=== PATIENT | male | born 1950 | race Caucasian/White ===

== ENCOUNTER 2021-06-16 01:13 | Inpatient (IN) | payer MEDICARE, MEDICAID ==
[2021-06-16] VITALS (9 sets, daily range): BP systolic 99–119; BP diastolic 62–76
[~2021-06-16] VITALS: Ht 167.6 cm; Wt 75.0 kg
[2021-06-16] MEDS ORDERED: THIA100T66 PO (01:36)
[2021-06-16] MEDS ORDERED: FOLI1TAB27 PO (01:36)
[2021-06-16] MEDS ORDERED: normal saline 1000ml 1,000 ML IV ONE (01:45)
[2021-06-16] MEDS ORDERED: adenosine 3mg/ml 2ml vial IV ONE ×2 (01:45→01:55)
[2021-06-16 02:00] LABS: BASOPHILS # (AUTO) 0.1 X10'3 (0-0.2); EOSINOPHILS # (AUTO) 0.2 X10'3 (0-0.9); EOSINOPHILS % (AUTO) 3.1 % (0-6); HEMATOCRIT 37.6 % (42.0-52.0); HEMOGLOBIN 12.3 g/dl (14.0-17.9); LYMPHOCYTES # (AUTO) 2.3 X10'3 (1.1-4.8); LYMPHOCYTES % (AUTO) 30.2 % (21-51); MEAN CORPUSCULAR HEMOGLOBIN 27.7 PG (27.0-31.0); MEAN CORPUSCULAR HGB CONC 32.7 g/dL (33.0-36.5); MEAN CORPUSCULAR VOLUME 84.9 FL (78-98); MEAN PLATELET VOLUME 8.3 FL (7.4-10.4); MONOCYTES # (AUTO) 0.7 X10'3 (0-0.9); MONOCYTES % (AUTO) 9.4 % (2-12); NEUTROPHILS # (AUTO) 4.2 X10'3 (1.8-7.7); NEUTROPHILS % (AUTO) 56.3 % (42-75); PLATELET COUNT 186 X10'3 (140-440); RED BLOOD COUNT 4.43 X10'6 (4.70-6.10); RED CELL DISTRIBUTION WIDTH 15.8 % (11.5-14.5); WHITE BLOOD COUNT 7.5 X10'3 (4.5-11.0)
[2021-06-16] MEDS ORDERED: diltiazem 5mg/ml 5ml inj. IV ONE (02:00)
--- NOTE | 2021-06-16 02:07 | NUR ---
Pt roomed directly to ER05. [place] alert, no impending distress. Tried two rounds of adenocard with ERP present and 10mg cardizem PIV s desired results. Adenocard temporarily slowed heart rate down however slower rate not sustained for more than about 2 minutes. Pt josey. well remained pinkl.
[2021-06-16] MEDS: metoprolol tartrate 1mg/ml inj IV SCH ×3 (02:10→02:40)
[2021-06-16 02:13] LABS: ALANINE AMINOTRANSFERASE 14 U/L (12-78); ALKALINE PHOSPHATASE 53 IU/L (46-116); ANION GAP 5 (8-16); ASPARTATE AMINO TRANSFERASE 13 U/L (10-37); BILIRUBIN,TOTAL 0.3 MG/DL (0.1-1.0); BLOOD UREA NITROGEN 21 MG/DL (7-18); BUN/CREATININE RATIO 18.1 (5.4-32.0); CALCIUM 8.2 MG/DL (8.5-10.1); CHLORIDE 112 MMOL/L (99-107); CREATININE 1.16 MG/DL (0.60-1.10); GLUCOSE 118 MG/DL (70-104); POTASSIUM 4.2 MMOL/L (3.5-5.1); SODIUM 147 MMOL/L (135-145); TOTAL CARBON DIOXIDE 30.1 MMOL/L (24-32); TOTAL PROTEIN 6.1 G/DL (6.4-8.2); eGFR 62 ML/MIN
[2021-06-16] MEDS ORDERED: amiodarone 150mg/dext, iso-os 100 ML IV ONE (02:25)
[2021-06-16] MEDS: amiodarone/D5 360MG/200ML BAG 200 ML IV SCH ×4 (02:51→19:30)
[2021-06-16] MEDS ORDERED: magnesium Cl slow-release 64mg tablet PO PRN (04:05)
[2021-06-16] MEDS ORDERED: magnesium 4gm in 100ml NS 100 ML IV PRN (04:05)
[2021-06-16] MEDS ORDERED: magnesium hydroxide 30ml (MOM) UD suspension PO PRN (04:05)
[2021-06-16] MEDS ORDERED: HYDROcodone/acetaminophen 10/325mg tab PO PRN (04:05)
[2021-06-16] MEDS ORDERED: mag hydrox/Alum hydrox/simeth 30ml oral suspension PO PRN (04:05)
[2021-06-16] MEDS ORDERED: acetaminophen 325mg tablet PO PRN ×2 (04:05)
[2021-06-16] MEDS ORDERED: morphine 2 MG/ML inj. syringe IV PRN ×2 (04:05)
[2021-06-16] MEDS ORDERED: HYDROcodone/acetaminophen 5mg/325mg tablet PO PRN (04:05)
[2021-06-16] MEDS ORDERED: ondansetron/PF 4mg/2ml inj IV PRN (04:05)
[2021-06-16] MEDS ORDERED: magnesium 2GM in 50ml NS 50 ML IV PRN (04:05)
[2021-06-16] MEDS ORDERED: potassium CL 10mEq/100ml bag 100 ML IV PRN (04:05)
[2021-06-16] MEDS ORDERED: POTASSIUM BICARB 20meq eff tab 20 MEQ TABLET.EFF PO PRN ×2 (04:05)
[2021-06-16 04:20] LABS: MAGNESIUM 1.7 MG/DL (1.5-2.4)
[2021-06-16 04:26] LABS: HEMOGLOBIN A1C 6.6 % (4.5-6.2)
[2021-06-16] MEDS ORDERED: metoprolol tartrate 1mg/ml inj IV SCH (04:40)
--- NOTE | 2021-06-16 04:54 | NUR ---
Pt pink, alert, no acute/resp distress. PIV site c/d/i s complication or adverse reaction. Bed in lowest position, wheels locked, rail 2/2 up. Call [facility] in reach.
--- NOTE | 2021-06-16 05:23 | NUR ---
Pt pink, alert, no acute/resp distress. PIV site c/d/i s complication or adverse reaction. Bed in lowest position, wheels locked, rail 2/2 up. Call [facility] in reach. Pt using urinal to void.
--- NOTE | 2021-06-16 06:11 | NUR ---
Handoff report to dayshift RN Pt in floor bed in room ed07. Pt bed in lowest position, wheels locked, rails up, call [facility] in reach. PIV site c/d/i s complication or adverse reaction.
[2021-06-16] MEDS: docusate sod 100mg capsule PO SCH ×2 (08:00→19:31)
[2021-06-16] MEDS: K and/or MAG REPLACEMENT MC SCH ×2 (08:00→20:00)
[2021-06-16] MEDS: apixaban 5mg tablet PO SCH ×2 (08:03→19:30)
[2021-06-16] MEDS: folic acid 1mg tablet PO SCH (08:03)
[2021-06-16] MEDS: thiamine 100mg tablet PO SCH (08:03)
[2021-06-16] MEDS: diltiazem 30mg tablet PO SCH ×3 (09:19→19:30)
[2021-06-16] MEDS: furosemide 20 MG/2 ML vial IV SCH ×2 (14:22→19:28)
[2021-06-17] VITALS (7 sets, daily range): BP systolic 101–122; BP diastolic 44–60
[2021-06-17] MEDS ORDERED: digoxin 250mcg/ml 2ml ampule IV SCH (00:20)
--- NOTE | 2021-06-17 00:30 | NUR ---
Pt HR sustaining in a. flutter and between 130-140s. Call placed to [facility] hospitalist Dr. Mckenzie. Order to give Digoxin. See MAR.
[2021-06-17] MEDS: diltiazem 30mg tablet PO SCH ×2 (02:02→07:43)
[2021-06-17 06:11] LABS: BASOPHILS # (AUTO) 0.1 X10'3 (0-0.2); BASOPHILS % (AUTO) 0.7 % (0-1); EOSINOPHILS # (AUTO) 0.2 X10'3 (0-0.9); EOSINOPHILS % (AUTO) 1.7 % (0-6); HEMATOCRIT 37.3 % (42.0-52.0); HEMOGLOBIN 12.4 g/dl (14.0-17.9); LYMPHOCYTES # (AUTO) 1.7 X10'3 (1.1-4.8); LYMPHOCYTES % (AUTO) 17.3 % (21-51); MEAN CORPUSCULAR HEMOGLOBIN 27.8 PG (27.0-31.0); MEAN CORPUSCULAR HGB CONC 33.2 g/dL (33.0-36.5); MEAN CORPUSCULAR VOLUME 83.7 FL (78-98); MEAN PLATELET VOLUME 8.5 FL (7.4-10.4); MONOCYTES # (AUTO) 0.7 X10'3 (0-0.9); MONOCYTES % (AUTO) 7.2 % (2-12); NEUTROPHILS % (AUTO) 73.1 % (42-75); PLATELET COUNT 175 X10'3 (140-440); RED BLOOD COUNT 4.46 X10'6 (4.70-6.10); RED CELL DISTRIBUTION WIDTH 15.9 % (11.5-14.5); WHITE BLOOD COUNT 9.6 X10'3 (4.5-11.0)
[2021-06-17 06:31] LABS: ALANINE AMINOTRANSFERASE 49 U/L (12-78); ALBUMIN/GLOBULIN RATIO 0.9 (1.1-1.5); ALKALINE PHOSPHATASE 65 IU/L (46-116); ANION GAP 6 (8-16); ASPARTATE AMINO TRANSFERASE 25 U/L (10-37); BILIRUBIN,TOTAL 0.4 MG/DL (0.1-1.0); BLOOD UREA NITROGEN 21 MG/DL (7-18); BUN/CREATININE RATIO 17.4 (5.4-32.0); CALCIUM 8.2 MG/DL (8.5-10.1); CHLORIDE 109 MMOL/L (99-107); CHOL/HDL RATIO 3.1 (0.00-4.99); CHOLESTEROL 147 MG/DL (0-200); CREATININE 1.21 MG/DL (0.60-1.10); GLUCOSE 120 MG/DL (70-104); HDL CHOLESTEROL 47 MG/DL (35-60); LDL CHOLESTEROL 87 MG/DL (50-100); POTASSIUM 3.9 MMOL/L (3.5-5.1); SODIUM 144 MMOL/L (135-145); TOTAL CARBON DIOXIDE 28.7 MMOL/L (24-32); TOTAL PROTEIN 6.2 G/DL (6.4-8.2); TRIGLYCERIDES 64 MG/DL (20-135); eGFR 59 ML/MIN
[2021-06-17] MEDS: furosemide 20 MG/2 ML vial IV SCH ×2 (07:43→19:24)
[2021-06-17] MEDS: folic acid 1mg tablet PO SCH (07:43)
[2021-06-17] MEDS: apixaban 5mg tablet PO SCH ×2 (07:43→19:24)
[2021-06-17] MEDS: thiamine 100mg tablet PO SCH (07:43)
[2021-06-17] MEDS: docusate sod 100mg capsule PO SCH ×2 (07:43→19:24)
[2021-06-17] MEDS: amiodarone 200mg tablet PO SCH (07:43)
[2021-06-17] MEDS: K and/or MAG REPLACEMENT MC SCH ×2 (07:50→18:48)
[2021-06-17] MEDS ORDERED: ondansetron 4mg rapidly disintigrating tab PO PRN (13:15)
--- NOTE | 2021-06-17 18:40 | NUR ---
Patient in room U 3013. I have received report from FELISHA BECK and had the opportunity to ask questions and assume patient care. Addendum: 06/17/21 at 1841 by Mona Watts RN Amended: Links added.
[2021-06-17] MEDS: metoprolol tartrate 25mg tablet PO SCH (19:26)
[2021-06-18 02:00] VITALS: BP 106/65
--- NOTE | 2021-06-18 06:49 | NUR ---
Problems reprioritized. Patient report given, questions answered & plan of care reviewed with FELISHA BOSS. Addendum: 06/18/21 at 0650 by Mona Watts RN Amended: Links added.
--- NOTE | 2021-06-18 06:50 | NUR ---
Patient in room PCU 3013. I have received report from Mona BAEZA and had the opportunity to ask questions and assume patient care.
[2021-06-18 07:28] LABS: BASOPHILS # (AUTO) 0.1 X10'3 (0-0.2); BASOPHILS % (AUTO) 0.8 % (0-1); EOSINOPHILS # (AUTO) 0.2 X10'3 (0-0.9); EOSINOPHILS % (AUTO) 2.3 % (0-6); HEMATOCRIT 38.7 % (42.0-52.0); HEMOGLOBIN 12.9 g/dl (14.0-17.9); LYMPHOCYTES # (AUTO) 1.8 X10'3 (1.1-4.8); LYMPHOCYTES % (AUTO) 21.3 % (21-51); MEAN CORPUSCULAR HEMOGLOBIN 27.8 PG (27.0-31.0); MEAN CORPUSCULAR HGB CONC 33.2 g/dL (33.0-36.5); MEAN CORPUSCULAR VOLUME 83.7 FL (78-98); MEAN PLATELET VOLUME 8.9 FL (7.4-10.4); MONOCYTES # (AUTO) 0.7 X10'3 (0-0.9); MONOCYTES % (AUTO) 7.9 % (2-12); NEUTROPHILS # (AUTO) 5.8 X10'3 (1.8-7.7); NEUTROPHILS % (AUTO) 67.7 % (42-75); PLATELET COUNT 168 X10'3 (140-440); RED BLOOD COUNT 4.63 X10'6 (4.70-6.10); RED CELL DISTRIBUTION WIDTH 15.7 % (11.5-14.5); WHITE BLOOD COUNT 8.6 X10'3 (4.5-11.0)
[2021-06-18 07:53] LABS: ALANINE AMINOTRANSFERASE 38 U/L (12-78); ALBUMIN 3.1 G/DL (3.4-5.0); ALBUMIN/GLOBULIN RATIO 0.9 (1.1-1.5); ALKALINE PHOSPHATASE 64 IU/L (46-116); ANION GAP 7 (8-16); ASPARTATE AMINO TRANSFERASE 19 U/L (10-37); BILIRUBIN,TOTAL 0.8 MG/DL (0.1-1.0); BLOOD UREA NITROGEN 23 MG/DL (7-18); BUN/CREATININE RATIO 21.1 (5.4-32.0); CALCIUM 8.5 MG/DL (8.5-10.1); CHLORIDE 107 MMOL/L (99-107); CREATININE 1.09 MG/DL (0.60-1.10); GLUCOSE 110 MG/DL (70-104); POTASSIUM 3.8 MMOL/L (3.5-5.1); SODIUM 143 MMOL/L (135-145); TOTAL CARBON DIOXIDE 29.1 MMOL/L (24-32); TOTAL PROTEIN 6.4 G/DL (6.4-8.2); eGFR 67 ML/MIN
[2021-06-18] MEDS: K and/or MAG REPLACEMENT MC SCH (08:00)
[2021-06-18] MEDS: amiodarone 200mg tablet PO SCH (08:10)
[2021-06-18] MEDS: apixaban 5mg tablet PO SCH (08:10)
[2021-06-18] MEDS: docusate sod 100mg capsule PO SCH (08:10)
[2021-06-18] MEDS: folic acid 1mg tablet PO SCH (08:10)
[2021-06-18] MEDS: thiamine 100mg tablet PO SCH (08:10)
[2021-06-18 08:11] VITALS: BP_SYST 102
[2021-06-18] MEDS: furosemide 20 MG/2 ML vial IV SCH (08:11)
[2021-06-18] MEDS: metoprolol tartrate 25mg tablet PO SCH (08:11)
[2021-06-18] MEDS ORDERED: APIX5TAB3 PO (11:27)
[2021-06-18] MEDS ORDERED: LOP25T PO (11:27)
[2021-06-18] MEDS ORDERED: FURO20TA4 PO (11:27)
[2021-06-18] MEDS ORDERED: AMIO200T67 PO (11:27)
--- NOTE | 2021-06-18 12:51 | NUR ---
Pt discharged. IV and tele box removed, with tele box returned to tele monitored. Reviewed discharge paperwork and patient was able to ask questions and review information. Called [facility] pharmacy to verify that they have the medications and are able to be picked up. Pt packed up belongings and verbalized that he has all of his stuff. Pt was escorted out via wheelchair to taxi to be driven to [place].
== END 2021-06-18 12:56 | disposition home or self-care (01) | DRG 308 ==
LOC: ER 01:14 → ED HOLD 04:07 → PCU 3S 07:47
PROVIDERS: ADMIT Internal Medicine; ATTEND Internal Medicine
DX: I48.91 Unspecified atrial fibrillation (principal); I50.21 Acute systolic (congestive) heart failure; I70.92 Chronic total occlusion of artery of the extremities; I48.92 Unspecified atrial flutter; D17.9 Benign lipomatous neoplasm, unspecified; I70.201 Unspecified atherosclerosis of native arteries of extremities, right leg; I71.2 Thoracic aortic aneurysm, without rupture; D64.9 Anemia, unspecified; J44.9 Chronic obstructive pulmonary disease, unspecified; N40.0 Benign prostatic hyperplasia without lower urinary tract symptoms; Z87.891 Personal history of nicotine dependence; Z59.00 Homelessness unspecified; Z79.01 Long term (current) use of anticoagulants; Z79.899 Other long term (current) drug therapy; Z86.73 Personal history of transient ischemic attack (TIA), and cerebral infarction without residual deficits; Z91.19 Patient's noncompliance with other medical treatment and regimen; Z95.2 Presence of prosthetic heart valve
CPT/HCPCS: 36415; 71045; 80053; 80061; 80162; 83036; 83735; 83880; 84439; 84443; 84484; 85025; 87081; 93005; 93306; 96361; 96365; 96375; 97161; 99285; G0378; J0153; J0282; J1160; J1940; J3490; J7030

== ENCOUNTER 2021-07-29 00:52 | Emergency (ER) | payer MEDICARE, MEDICAID ==
[~2021-07-29] VITALS: Ht 167.6 cm; Wt 77.3 kg
[~2021-07-29 00:52] MED LIST: AMIO200T67 PO; APIX5TAB3 PO; FOLI1TAB27 PO; FURO20TA4 PO; LOP25T PO; THIA100T66 PO
[2021-07-29] MEDS ORDERED: methylPREDNISolone sod succ 125mg/2ml vial IV ONE (02:10)
[2021-07-29] MEDS ORDERED: diltiazem 5mg/ml 5ml inj. IV ONE (02:10)
[2021-07-29] MEDS ORDERED: ALBU8.5H17 INH (02:23)
[2021-07-29] MEDS ORDERED: FLUT100D INH (02:23)
[2021-07-29] MEDS ORDERED: PRED20TA PO (02:23)
[2021-07-29] MEDS ORDERED: metoprolol succinate 25mg (24-HOUR) SR. Tablet PO ONE (02:25)
--- NOTE | 2021-07-29 02:27 | NUR ---
Multiple attempts to draw patients blood for labs without success. He states that he has this problem everytime he goes to the hospital. Ike AGUERO made aware.
[2021-07-29 03:27] VITALS: BP 107/62
== END 2021-07-29 03:30 | disposition home or self-care (01) ==
LOC: ER 00:53
DX: J44.1 Chronic obstructive pulmonary disease with (acute) exacerbation (principal); F17.200 Nicotine dependence, unspecified, uncomplicated; I48.91 Unspecified atrial fibrillation; Z86.79 Personal history of other diseases of the circulatory system; Z59.00 Homelessness unspecified; Z79.899 Other long term (current) drug therapy
CPT/HCPCS: 71045; 93005; 96374; 96375; 99284; J2930; J3490; 99285